=== PATIENT | male | born 1955 | race Hispanic/Latino ===

== ENCOUNTER 2016-08-04 15:55 | Emergency (ER) | payer BC ==
[2016-08-04 16:45] LABS: Basophils % (Auto) 0.8 % (0.0-1.8); Eosinophils % (Auto) 2.9 % (0.0-4.3); Hematocrit 47.6 % (35.5-45.6); Hemoglobin 15.8 gm/dl (11.8-15.2); Mean Corpuscular HGB Conc 33 % (32-34); Mean Corpuscular Hemoglobin 33 pg (28-32); Mean Corpuscular Volume 100 fl (84-94); Platelet Count 216 K/mm3 (140-440); Red Blood Count 4.77 M/mm3 (3.65-5.03); Red Cell Distribution Width 13.5 % (13.2-15.2); White Blood Count 11.4 K/mm3 (4.5-11.0)
[2016-08-04] MEDS ORDERED: NITRO-BID 2% TP ONE (17:19)
[2016-08-04 17:27] LABS: Anion Gap 19 mmol/L; BUN/Creatinine Ratio 15.55; Blood Urea Nitrogen 14 mg/dL (9-20); Calcium 9.8 mg/dL (8.4-10.2); Carbon Dioxide 21 mmol/L (22-30); Chloride 100.2 mmol/L (98-107); Glucose 101 mg/dL (75-100); Sodium 135 mmol/L (137-145)
--- NOTE | 2016-08-04 17:52 | Emergency Department Report ---
ED Chest Pain HPI - General Chief Complaint: Chest Pain Stated Complaint: CHEST PAIN Time Seen by Provider: 08/04/16 17:17 Source: patient, old records reviewed (no previous record for review) Mode of arrival: Ambulatory Limitations: No Limitations - History of Present Illness Initial Comments: 60-year-old male with past medical history of femoral artery stenosis, CABG 3, multiple cardiac stents, a subclavian steal syndrome with stent, paroxysmal atrial fibrillation, and hypertension presents with chest pain and near- syncope. She works in a pharmacy. A cold that was called due to episode of chest pain and near-syncope. Patient states he had 3 episodes of grabbing left lower chest pain and associated lightheadedness, diaphoresis, and near-syncope. No shortness of breath reported. No aggravating or alleviating factors reported. Patient has been compliant with his aspirin, Plavix, and other medication. No previous cardiac workup at this Hospital. He states his last card cath was 2-3 years ago and stents placed at that time. His globe tester affiliated with [facility] Dr. Pinon, Dr. Flower patient is requesting transfer to [facility] and states he also has scheduled vascular intervention for his femoral arteries soon. Severity scale (0 -10): 0 - Related Data Home Medications Medication Instructions Recorded Confirmed Last Taken Aspirin [Aspirin BABY CHEW TAB] 81 mg PO DAILY 08/04/16 08/04/16 Unknown Losartan [Cozaar] 50 mg PO DAILY 08/04/16 08/04/16 08/04/16 Nebivolol HCl [Bystolic] 20 mg PO DAILY 08/04/16 08/04/16 Unknown [place]-3 Fatty Acids [Fish Oil] 2,200 mg PO DAILY 08/04/16 08/04/16 Unknown Rosuvastatin Calcium [Crestor] 40 mg PO DAILY 08/04/16 08/04/16 Unknown Allergies Allergy/AdvReac Type Severity Reaction Status Date / Time iodine Allergy Rash Verified 08/04/16 16:02 Penicillins Allergy Hives Verified 08/04/16 16:04 shellfish derived Allergy Hives Verified 08/04/16 16:27 YOUNG score - Young Score Age > 65: (0) No Aspirin use within the Past 7 Days: (1) Yes 3 or more CAD Risk Factors: (1) Yes 2 or more Angina events in past 24 hrs: (1) Yes Known CAD with more than 50% Stenosis: (1) Yes Elevated Cardiac Markers: (0) No ST Deviation Greater than 0.5mm: (0) No YOUNG Score: 4 ED Review of Systems ROS: Stated complaint: CHEST PAIN Other details as noted in HPI Comment: All other systems reviewed and negative Other: Constitutional: No fevers chills Eyes: No eye pain visual changes ENT: No ear pain or throat pain Neck: Denies pain Respiratory: Denies cough wheezing shortness of breath Cardiovascular: Denies palpitations GI: Denies abdominal pain, nausea, vomiting, diarrhea : Denies dysuria Musculoskeletal: Denies back pain Skin: Denies rash, lesions, erythema Neurologic: Denies headache, numbness, weakness Psychiatric: Denies suicidal ideation, hallucinations ED Past Medical Hx - Past Medical History Previous Medical History?: Yes Hx Hypertension: Yes Hx Heart Attack/AMI: Yes (CABG and Stents; AFIB) Hx Deep Vein Thrombosis: (Femorial Artery Stenosis (clots)) Additional medical history: right subclavian steal syndrome with stent placement , paroxysmal atrial fibrillation - Surgical History Past Surgical History?: Yes Additional Surgical History: CABG x3 - Social History Smoking Status: Current Every Day Smoker Substance Use Type: Alcohol - Medications Home Medications: Home Medications Medication Instructions Recorded Confirmed Last Taken Type Aspirin [Aspirin BABY CHEW TAB] 81 mg PO DAILY 08/04/16 08/04/16 Unknown History Losartan [Cozaar] 50 mg PO DAILY 08/04/16 08/04/16 08/04/16 History Nebivolol HCl [Bystolic] 20 mg PO DAILY 08/04/16 08/04/16 Unknown History [place]-3 Fatty Acids [Fish Oil] 2,200 mg PO DAILY 08/04/16 08/04/16 Unknown History Rosuvastatin Calcium [Crestor] 40 mg PO DAILY 08/04/16 08/04/16 Unknown History ED Physical Exam - General Limitations: No Limitations - Other Other exam information: General: No limitations, patient is alert in no acute distress Head exam: Atraumatic, normocephalic Eyes exam: Normal appearance, pupils equal reactive to light, extraocular movements intact ENT: Moist mucous membrane, normal oropharynx Neck exam: Normal inspection, full range of motion, no meningismus nontender Respiratory exam: Clear to auscultation bilateral, no wheezes, rales, crackles Cardiovascular: Normal rate and rhythm, systolic murmur, sternotomy scar Abdomen: Soft, nondistended, and nontender, with normal bowel sounds, no rebound, or guarding Extremity: Full range of motion normal inspection no deformity Back: Normal Inspection, full range of motion, no tenderness Neurologic: Alert, oriented x3, cranial nerves intact, no motor or sensory deficit Psychiatric: normal affect, normal mood Skin: Warm, dry, intact ED Course Vital Signs 08/04/16 08/04/16 08/04/16 16:14 16:15 16:28 Temperature 98.1 F Pulse Rate 81 81 80 Respiratory 16 16 Rate Blood Pressure 206/110 207/90 Blood Pressure [Left] Blood Pressure [Right] O2 Sat by Pulse 99 94 97 Oximetry 08/04/16 08/04/16 08/04/16 16:30 16:38 16:45 Temperature Pulse Rate 75 80 77 Respiratory 14 11 L Rate Blood Pressure 193/93 204/105 Blood Pressure [Left] Blood Pressure [Right] O2 Sat by Pulse 93 94 Oximetry 08/04/16 08/04/16 08/04/16 17:01 17:15 17:31 Temperature Pulse Rate 78 77 80 Respiratory 18 15 24 Rate Blood Pressure 204/105 116/79 204/105 Blood Pressure [Left] Blood Pressure [Right] O2 Sat by Pulse 97 96 94 Oximetry 08/04/16 08/04/16 08/04/16 17:40 17:45 17:51 Temperature 98.1 F Pulse Rate 75 77 70 Respiratory 18 12 Rate Blood Pressure 134/91 204/104 Blood Pressure 200/109 [Left] Blood Pressure 134/91 [Right] O2 Sat by Pulse 95 94 Oximetry 08/04/16 08/04/16 08/04/16 18:00 18:15 18:30 Temperature Pulse Rate 78 77 73 Respiratory 15 14 10 L Rate Blood Pressure 206/106 192/102 196/99 Blood Pressure [Left] Blood Pressure [Right] O2 Sat by Pulse 96 95 94 Oximetry 08/04/16 08/04/16 08/04/16 18:50 19:00 19:15 Temperature Pulse Rate 81 72 Respiratory 26 H Rate Blood Pressure 170/90 170/90 Blood Pressure [Left] Blood Pressure [Right] O2 Sat by Pulse 94 94 Oximetry 08/04/16 08/04/16 08/04/16 19:22 20:00 22:48 Temperature 98.3 F Pulse Rate 80 70 74 Respiratory 16 21 18 Rate Blood Pressure Blood Pressure 157/79 147/76 [Left] Blood Pressure 170/90 [Right] O2 Sat by Pulse 100 94 94 Oximetry - Reevaluation(s) Reevaluation #1: 08/04/16 17:55 Sickly shrimp paste ordered given cardiac history and elevated BP on the left arm Reevaluation #2: 08/04/16 18:10 Patient requesting medication to help him relax. Ativan 0.5 mg ordered Reevaluation #3: 08/04/16 20:10 blood pressure improving with Josue paste. repeat trop order. pt awaiting transfer 08/04/16 20:11 Reevaluation #4: 08/04/16 20:20 Patient's complaining of pain and feeling anxious. Additional Ativan, morphine , Zofran - Consultations Consultation #1: 08/04/16 18:05 Patient accepted by globe tester Dr. Silva for transfer to [facility]. Awaiting callback from transfer service ED Medical Decision Making - Lab Data Result diagrams: 08/04/16 15:33 08/04/16 15:33 Lab Results 08/04/16 08/04/16 08/04/16 Range/Units 15:33 15:33 17:21 WBC 11.4 H (4.5-11.0) K/mm3 RBC 4.77 (3.65-5.03) M/mm3 Hgb 15.8 H (11.8-15.2) gm/dl Hct 47.6 H (35.5-45.6) % MCV 100 H (84-94) fl MCH 33 H (28-32) pg MCHC 33 (32-34) % RDW 13.5 (13.2-15.2) % Plt Count 216 (140-440) K/mm3 Lymph % (Auto) 31.1 (13.4-35.0) % [place] % (Auto) 7.8 H (0.0-7.3) % Eos % (Auto) 2.9 (0.0-4.3) % Baso % (Auto) 0.8 (0.0-1.8) % Lymph # 3.5 (1.2-5.4) K/mm3 Aurora # 0.9 H (0.0-0.8) K/mm3 Eos # 0.3 (0.0-0.4) K/mm3 Baso # 0.1 (0.0-0.1) K/mm3 Seg Neutrophils % 57.4 (40.0-70.0) % Seg Neutrophils # 6.6 (1.8-7.7) K/mm3 Sodium 135 L (137-145) mmol/L Potassium 5.0 (3.6-5.0) mmol/L Chloride 100.2 (98-107) mmol/L Carbon Dioxide 21 L (22-30) mmol/L Anion Gap 19 mmol/L BUN 14 (9-20) mg/dL Creatinine 0.9 (0.8-1.5) mg/dL Estimated GFR > 60 ml/min BUN/Creatinine Ratio 15.55 % Glucose 101 H (75-100) mg/dL Calcium 9.8 (8.4-10.2) mg/dL Total Creatine Kinase 162 (55-170) units/L CK-MB (CK-2) 3.3 (0.0-4.0) ng/mL CK-MB (CK-2) Rel Index 2.0 (0-4) Troponin T < 0.010 (0.00-0.029) ng/mL /16/17 Range/Units 20:18 WBC (4.5-11.0) K/mm3 RBC (3.65-5.03) M/mm3 Hgb (11.8-15.2) gm/dl Hct (35.5-45.6) % MCV (84-94) fl MCH (28-32) pg MCHC (32-34) % RDW (13.2-15.2) % Plt Count (140-440) K/mm3 Lymph % (Auto) (13.4-35.0) % [place] % (Auto) (0.0-7.3) % Eos % (Auto) (0.0-4.3) % Baso % (Auto) (0.0-1.8) % Lymph # (1.2-5.4) K/mm3 Aurora # (0.0-0.8) K/mm3 Eos # (0.0-0.4) K/mm3 Baso # (0.0-0.1) K/mm3 Seg Neutrophils % (40.0-70.0) % Seg Neutrophils # (1.8-7.7) K/mm3 Sodium (137-145) mmol/L Potassium (3.6-5.0) mmol/L Chloride (98-107) mmol/L Carbon Dioxide (22-30) mmol/L Anion Gap mmol/L BUN (9-20) mg/dL Creatinine (0.8-1.5) mg/dL Estimated GFR ml/min BUN/Creatinine Ratio % Glucose (75-100) mg/dL Calcium (8.4-10.2) mg/dL Total Creatine Kinase (55-170) units/L CK-MB (CK-2) (0.0-4.0) ng/mL CK-MB (CK-2) Rel Index (0-4) Troponin T < 0.010 (0.00-0.029) ng/mL - EKG Data -: EKG Interpreted by Me (sinus rate 79 Q waves inferiorly) - EKG Data When compared to previous EKG there are: previous EKG unavailable - Radiology Data Radiology results: image reviewed (chest x-ray: No acute finding) - Medical Decision Making Patient stable in the ED. Nitro paste and Ativan ordered. The patient accepted by globe tester for transfer to [facility]. - Differential Diagnosis RI, unstable angina, atypical chest pain, PE, atrial fibrillation Critical Care Time: No Critical care attestation.: If time is entered above; I have spent that time in minutes in the direct care of this critically ill patient, excluding procedure time. ED Disposition Clinical Impression: Chest pain, PAD (peripheral artery disease), Hx of CABG, Hx of heart artery stent, Subclavian artery stenosis, right, Near syncope Disposition: DC/TX ANOTHER TYPE HEALTHCARE Is pt being admited?: No Does the pt Need Aspirin: No (pt had is asa plavix today) Condition: Stable Referrals: PRIMARY CARE, [Primary Care Provider] - 3-5 Days Time of Disposition: 18:13 (accepted by Dr Ricardo barrios for transfer to [facility])
[2016-08-04] MEDS ORDERED: ATIVAN IV ONE ×2 (18:10→20:15)
--- NOTE | 2016-08-04 19:17 | XRay Report ---
FINAL REPORT PROCEDURE: XR CHEST ROUTINE 2V TECHNIQUE: PA and lateral chest radiographs were obtained. CPT 46114 HISTORY: Shortness of breath COMPARISON: No prior studies are available for comparison. FINDINGS: Heart: Postsurgical changes. Mediastinum/Vessels: Normal contour. Lungs/Pleural space: No infiltrate, effusion, or pneumothorax. Bony thorax: No acute osseous abnormality. Other: IMPRESSION: No pulmonary infiltrates are identified.
[2016-08-04] MEDS ORDERED: ZOFRAN IV ONE (20:15)
[2016-08-04] MEDS ORDERED: MORPHINE IV ONE (20:15)
[2016-08-04 20:56] LABS: Creatine Kinase MB 3.3 ng/mL (0.0-4.0)
[2016-08-04 23:32] VITALS: BP 132/76
== END 2016-08-04 23:30 | disposition other institution (70) ==
LOC: ED 15:55
DX: I73.9 Peripheral vascular disease, unspecified (principal); R55 Syncope and collapse; R07.9 Chest pain, unspecified; I77.1 Stricture of artery; I10 Essential (primary) hypertension; I25.2 Old myocardial infarction; F17.200 Nicotine dependence, unspecified, uncomplicated; Z95.1 Presence of aortocoronary bypass graft
CPT/HCPCS: 36415; 71020; 80048; 82550; 82553; 84484; 85025; 93005; 93010; 96374; 96376; 99285; J2060; J2405; J2270